=== PATIENT | female | born 1970 | race Caucasian/White ===

== ENCOUNTER 2019-02-02 22:30 | Inpatient (IN) ==
[2019-02-02] MEDS ORDERED: Morphine Sulfate 2 MG/ML SYRINGE IVP ONE (23:05)
[2019-02-02] MEDS ORDERED: 0.9 % Sodium Chloride 1,000 ML IVC ONE (23:05)
[2019-02-02] MEDS ORDERED: Pantoprazole 40 MG VIAL IVP ONE (23:05)
[2019-02-02] MEDS ORDERED: Ondansetron 4 MG/2 ML VIAL IVP ONE (23:05)
[2019-02-02] MEDS ORDERED: Isovue-370 500 ML BOTTLE IVP ONE (23:07)
[2019-02-02 23:57] LABS: Basophils % 0.3 %; Eosinophils # 0.2 K/mcL (0.0-0.6); Eosinophils % 1.7 %; Hematocrit 38.2 % (35.3-44.9); Hemoglobin 13.7 g/dL (11.5-15.4); Immature Granulocytes % 0.2 % (0-4); Lymphocytes # 2.8 K/mcL (0.6-4.6); Lymphocytes % 27.8 %; Mean Corpuscular HGB Conc 35.9 g/dL (31.6-35.5); Mean Corpuscular Hemoglobin 30.9 pg (28.0-33.3); Mean Platelet Volume 10.8 fL (9.4-12.4); Monocytes # 0.9 K/mcL (0.0-1.3); Neutrophils # 6.1 K/mcL (1.6-8.9); Platelet Count 304 K/mcL (140-400); Red Blood Count 4.44 M/mcL (3.82-4.97); Red Cell Distribution Width 12.8 % (11.5-14.5); White Blood Count 10.1 K/mcL (4.3-11.1)
[2019-02-03 00:07] LABS: Alanine Aminotransferase 17 Units/L (7-52); Albumin 4.5 g/dL (3.5-5.7); Albumin/Globulin Ratio 1.6 (1.1-2.2); Alkaline Phosphatase 81 Units/L (34-104); Aspartate Amino Transferase 15 Units/L (13-39); BUN/Creatinine Ratio 14 (6-26); Bilirubin,Direct 0.1 mg/dL (0.0-0.2); Bilirubin,Indirect 0.4 mg/dL (0.0-1.0); Bilirubin,Total 0.5 mg/dL (0.3-1.0); Blood Urea Nitrogen 12 mg/dL (6-20); Calcium 9.8 mg/dL (8.6-10.3); Carbon Dioxide 20 mEq/L (23-29); Chloride 106 mEq/L (98-107); Globulin 2.9 g/dL (2.4-3.5); Glucose 89 mg/dL (70-105); Lipase 9 Units/L (11-82); Osmolality,Calculated 285 (280-300); Potassium 3.4 mEq/L (3.5-5.1); Sodium 138 mEq/L (136-145); Total Protein 7.4 g/dL (6.4-8.9); eGFR For African Americans > 60 (> 60); eGFR For Non-African Americans > 60 (> 60)
[2019-02-03 02:29] LABS: Bilirubin,Urine Negative (Negative); Blood,Urine Negative (Negative); Clarity,Urine Clear (Clear); Color,Urine Yellow (Yellow); Glucose,Urine (UA) Normal (Normal); Ketones,Urine Negative (Negative); Leukocyte Esterase,Urine Negative (Negative); Nitrite,Urine Negative (Negative); PH,Urine 7.5 pH Units (5.0-8.0); Protein,Urine Negative (Neg-Trace); Specific Gravity,Urine > 1.030 (1.010-1.025); Urobilinogen,Urine Normal (Normal)
[2019-02-03] MEDS ORDERED: Morphine Sulfate 2 MG/ML SYRINGE IVP ONE (02:35)
[2019-02-03] MEDS: 0.9 % Sodium Chloride 1,000 ML IVC SCH ×3 (02:46→23:10)
[2019-02-03] MEDS ORDERED: Ketorolac 15 MG/ML VIAL IVP PRN (03:41)
[2019-02-03] MEDS ORDERED: Naloxone 0.4 MG/ML INJ IVP PRN (03:41)
[2019-02-03] MEDS: Ondansetron 4 MG/2 ML VIAL IVP PRN ×3 (05:58→18:50)
[2019-02-03] MEDS: *HR* OxyCODONE Oral Soln 5 MG/5 ML UD.LIQ PO PRN ×5 (05:59→23:09)
[2019-02-03] MEDS: Pantoprazole 40 MG VIAL IVP SCH ×2 (05:59→18:03)
[2019-02-03] MEDS: *HR* Heparin 5,000 UNIT/ML VIAL SQ SCH ×3 (07:23→20:44)
[2019-02-03 09:03] LABS: Hematocrit 36.5 % (35.3-44.9); Hemoglobin 12.4 g/dL (11.5-15.4); Mean Corpuscular Hemoglobin 30.6 pg (28.0-33.3); Mean Corpuscular Volume 90.1 fL (83.0-100.0); Mean Platelet Volume 10.3 fL (9.4-12.4); Platelet Count 257 K/mcL (140-400); Red Blood Count 4.05 M/mcL (3.82-4.97); Red Cell Distribution Width 12.9 % (11.5-14.5); White Blood Count 7.9 K/mcL (4.3-11.1)
[2019-02-03 09:24] LABS: BUN/Creatinine Ratio 11 (6-26); Blood Urea Nitrogen 10 mg/dL (6-20); Calcium 8.9 mg/dL (8.6-10.3); Carbon Dioxide 21 mEq/L (23-29); Chloride 109 mEq/L (98-107); Glucose 90 mg/dL (70-105); Osmolality,Calculated 287 (280-300); Potassium 3.4 mEq/L (3.5-5.1); Sodium 139 mEq/L (136-145); eGFR For African Americans > 60 (> 60); eGFR For Non-African Americans > 60 (> 60)
[2019-02-03] MEDS: Valproic Acid Oral Soln 250 MG/5 ML UDC PO SCH ×2 (12:23→20:44)
[2019-02-03] MEDS: Sucralfate 1 GM TABLET PO SCH ×3 (12:23→20:44)
[2019-02-03 20:34] LABS: Campylobacter by PCR Not detected (Not detect)
[2019-02-03 20:39] LABS: Adenovirus F 40/41 PCR Not detected (Not detect); Astrovirus PCR Not detected (Not detect); C.difficile Toxin A/B Gene PCR DETECTED (Not detect); Cryptosporidium by PCR Not detected (Not detect); Cyclospora cayetanensis PCR Not detected (Not detect); E. coli O157 by PCR Not detected (Not detect); Entamoeba histolytica PCR Not detected (Not detect); Enteroaggregative E.coli(EAEC) Not detected (Not detect); Enteropathogenic E.coli(EPEC) Not detected (Not detect); Enterotoxigenic E.coli (ETEC) Not detected (Not detect); Giardia lamblia PCR Not detected (Not detect); Norovirus GI/GII PCR Not detected (Not detect); Plesiomonas shigelloides PCR Not detected (Not detect); Rotavirus A PCR Not detected (Not detect); Salmonella PCR Not detected (Not detect); Sapovirus PCR Not detected (Not detect); Shig/EnteroinvasiveE coli EIEC Not detected (Not detect); Shigalike tox-prod E coli STEC Not detected (Not detect); Vibrio PCR Not detected (Not detect); Vibrio cholerae PCR Not detected (Not detect); Yersinia enterocolitica PCR Not detected (Not detect)
[2019-02-03] MEDS ORDERED: Vancomycin Oral Soln 125 MG/2.5 ML UDC PO SCH (22:00)
[2019-02-04] MEDS: Ondansetron 4 MG/2 ML VIAL IVP PRN ×4 (01:07→21:58)
[2019-02-04] MEDS: *HR* OxyCODONE Oral Soln 5 MG/5 ML UD.LIQ PO PRN ×5 (04:04→21:58)
[2019-02-04] MEDS: Pantoprazole 40 MG VIAL IVP SCH ×2 (05:55→17:42)
[2019-02-04] MEDS: *HR* Heparin 5,000 UNIT/ML VIAL SQ SCH ×3 (05:55→22:12)
[2019-02-04 06:06] LABS: BUN/Creatinine Ratio 6 (6-26); Blood Urea Nitrogen 5 mg/dL (6-20); Calcium 8.7 mg/dL (8.6-10.3); Carbon Dioxide 19 mEq/L (23-29); Chloride 108 mEq/L (98-107); Glucose 107 mg/dL (70-105); Osmolality,Calculated 282 (280-300); Potassium 3.9 mEq/L (3.5-5.1); Sodium 137 mEq/L (136-145); eGFR For African Americans > 60 (> 60); eGFR For Non-African Americans > 60 (> 60)
[2019-02-04] MEDS: Sucralfate 1 GM TABLET PO SCH ×4 (07:50→23:10)
[2019-02-04] MEDS: 0.9 % Sodium Chloride 1,000 ML IVC SCH ×2 (07:50→15:16)
[2019-02-04] MEDS: Valproic Acid Oral Soln 250 MG/5 ML UDC PO SCH ×2 (09:17→21:56)
[2019-02-05 01:35] LABS: BUN/Creatinine Ratio 6 (6-26); Blood Urea Nitrogen 5 mg/dL (6-20); Calcium 8.6 mg/dL (8.6-10.3); Carbon Dioxide 23 mEq/L (23-29); Chloride 108 mEq/L (98-107); Glucose 89 mg/dL (70-105); Osmolality,Calculated 283 (280-300); Potassium 3.8 mEq/L (3.5-5.1); Sodium 138 mEq/L (136-145); eGFR For African Americans > 60 (> 60); eGFR For Non-African Americans > 60 (> 60)
[2019-02-05] MEDS: *HR* OxyCODONE Oral Soln 5 MG/5 ML UD.LIQ PO PRN ×4 (02:16→17:21)
[2019-02-05] MEDS: 0.9 % Sodium Chloride 1,000 ML IVC SCH ×3 (05:49→13:20)
[2019-02-05] MEDS: Pantoprazole 40 MG VIAL IVP SCH (06:19)
[2019-02-05] MEDS: *HR* Heparin 5,000 UNIT/ML VIAL SQ SCH ×2 (06:20→15:18)
[2019-02-05] MEDS: Valproic Acid Oral Soln 250 MG/5 ML UDC PO SCH (08:07)
[2019-02-05] MEDS: Sucralfate 1 GM TABLET PO SCH ×3 (08:07→15:19)
[2019-02-05] MEDS: Ondansetron 4 MG/2 ML VIAL IVP PRN (08:07)
[2019-02-05] MEDS ORDERED: Ondansetron ODT 4 MG TAB.RAPDIS SL PRN (13:52)
[2019-02-05 14:01] VITALS: BP 99/60
[2019-02-05] MEDS ORDERED: Divalproex (12 HR) 500 MG TABLET PO SCH (21:00)
== END 2019-02-05 18:59 | disposition home or self-care (01) | DRG 389 ==
LOC: 3ANU 22:30 → EMEROOARM 22:30 → SUATTDRO 02-03 02:47 → 3ANU 02-03 03:20
PROVIDERS: ADMIT Internal Medicine; ATTEND Family Medicine

== ENCOUNTER 2019-03-24 21:24 | Observation (INO) ==
[2019-03-24 22:36] LABS: Bilirubin,Urine Negative (Negative); Blood,Urine Negative (Negative); Clarity,Urine Clear (Clear); Color,Urine Yellow (Yellow); Glucose,Urine (UA) Normal (Normal); Ketones,Urine Negative (Negative); Leukocyte Esterase,Urine Trace (Negative); Nitrite,Urine Negative (Negative); PH,Urine 7.5 pH Units (5.0-8.0); Protein,Urine Negative (Neg-Trace); Specific Gravity,Urine 1.007 (1.010-1.025); Urobilinogen,Urine Normal (Normal)
[2019-03-24 22:39] LABS: Bacteria,Urine None Seen per hpf (None-Few); Hyaline Casts,Urine None Seen per lpf (None-Few); RBC,Urine 0-3 per hpf (0-3); Squamous Epithelial Cell,Urine Moderate per lpf (None-Few); WBC,Urine 0-3 per hpf (0-3)
[2019-03-25] MEDS ORDERED: 0.9 % Sodium Chloride 1,000 ML IVC ONE ×2 (03:21→07:15)
[2019-03-25] MEDS ORDERED: Isovue-370 500 ML BOTTLE IVP ONE ×2 (04:51→05:03)
[2019-03-25 05:03] LABS: Basophils # 0.1 K/mcL (0.0-0.2); Basophils % 0.6 %; Eosinophils # 0.3 K/mcL (0.0-0.6); Eosinophils % 3.4 %; Hematocrit 35.9 % (35.3-44.9); Hemoglobin 12.8 g/dL (11.5-15.4); Immature Granulocytes % 0.3 % (0-4); Lymphocytes # 3.4 K/mcL (0.6-4.6); Lymphocytes % 42.3 %; Mean Corpuscular HGB Conc 35.7 g/dL (31.6-35.5); Mean Corpuscular Hemoglobin 29.8 pg (28.0-33.3); Mean Corpuscular Volume 83.5 fL (83.0-100.0); Mean Platelet Volume 11.2 fL (9.4-12.4); Monocytes # 0.7 K/mcL (0.0-1.3); Monocytes % 8.9 %; Neutrophils # 3.6 K/mcL (1.6-8.9); Platelet Count 253 K/mcL (140-400); Red Cell Distribution Width 12.6 % (11.5-14.5); Segmented Neutrophils % 44.5 %
[2019-03-25] MEDS ORDERED: Morphine Sulfate 2 MG/ML SYRINGE IVP PRN (05:33)
[2019-03-25] MEDS ORDERED: Ondansetron 4 MG/2 ML VIAL IVP PRN (05:33)
[2019-03-25 05:34] LABS: Alanine Aminotransferase 14 Units/L (7-52); Albumin 4.4 g/dL (3.5-5.7); Albumin/Globulin Ratio 1.8 (1.1-2.2); Alkaline Phosphatase 66 Units/L (34-104); Amylase 19 Units/L (29-103); Aspartate Amino Transferase 21 Units/L (13-39); BUN/Creatinine Ratio 13 (6-26); Bilirubin,Direct 0.1 mg/dL (0.0-0.2); Bilirubin,Indirect 0.8 mg/dL (0.0-1.0); Bilirubin,Total 0.9 mg/dL (0.3-1.0); Blood Urea Nitrogen 12 mg/dL (6-20); Carbon Dioxide 22 mEq/L (23-29); Chloride 107 mEq/L (98-107); Globulin 2.4 g/dL (2.4-3.5); Glucose 86 mg/dL (70-105); Lipase 7 Units/L (11-82); Osmolality,Calculated 289 (280-300); Potassium 3.5 mEq/L (3.5-5.1); Sodium 140 mEq/L (136-145); Total Protein 6.8 g/dL (6.4-8.9); Troponin I < 0.03 ng/mL (< 0.04); eGFR For African Americans > 60 (> 60); eGFR For Non-African Americans > 60 (> 60)
[2019-03-25] MEDS ORDERED: Prochlorperazine 10 MG/2 ML VIAL IVP ONE (06:55)
[2019-03-25] MEDS ORDERED: *HR* HYDROmorphone (PF) 1 MG/ML SYRINGE IVP ONE (07:14)
[2019-03-25] MEDS ORDERED: Naloxone 0.4 MG/ML INJ IVP PRN (08:15)
[2019-03-25] MEDS ORDERED: D5% in 0.45% NACL 1,000 ML IVC SCH (08:15)
[2019-03-25] MEDS ORDERED: Acetaminophen 325 MG TABLET PO PRN (08:15)
[2019-03-25] MEDS ORDERED: Dextrose Gel 15 GM/37.5 ML TUBE PO PRN ×2 (08:17)
[2019-03-25] MEDS ORDERED: *HR* Dextrose 50 % in Water (Syg) 50 ML SYRINGE IVP PRN (08:17)
[2019-03-25] MEDS ORDERED: D5% in Water 1,000 ML IVC PRN (08:17)
[2019-03-25] MEDS: Insulin LISPRO 300 UNITS/3 ML VIAL SQ SCH ×3 (12:08→23:41)
[2019-03-25] MEDS: *HR* Heparin 5,000 UNIT/ML VIAL SQ SCH ×2 (13:15→21:08)
[2019-03-25] MEDS: *HR* OxyCODONE/APAP 5/325 TABLET PO PRN ×2 (13:15→19:57)
[2019-03-25] MEDS: Nystatin POWDER 30 GM BOTTLE TP SCH (19:58)
[2019-03-25] MEDS: Divalproex (12 HR) 500 MG TABLET PO SCH (23:28)
[2019-03-26] MEDS: *HR* OxyCODONE/APAP 5/325 TABLET PO PRN ×3 (02:12→16:33)
[2019-03-26] MEDS: *HR* Heparin 5,000 UNIT/ML VIAL SQ SCH ×3 (05:31→20:49)
[2019-03-26 05:44] LABS: Basophils % 0.4 %; Eosinophils # 0.3 K/mcL (0.0-0.6); Eosinophils % 5.8 %; Hematocrit 34.9 % (35.3-44.9); Hemoglobin 12.1 g/dL (11.5-15.4); Immature Granulocytes % 0.2 % (0-4); Lymphocytes # 2.6 K/mcL (0.6-4.6); Lymphocytes % 51.8 %; Mean Corpuscular HGB Conc 34.7 g/dL (31.6-35.5); Mean Corpuscular Hemoglobin 29.2 pg (28.0-33.3); Mean Corpuscular Volume 84.3 fL (83.0-100.0); Mean Platelet Volume 11.3 fL (9.4-12.4); Monocytes # 0.4 K/mcL (0.0-1.3); Monocytes % 7.5 %; Neutrophils # 1.7 K/mcL (1.6-8.9); Platelet Count 203 K/mcL (140-400); Red Blood Count 4.14 M/mcL (3.82-4.97); Red Cell Distribution Width 12.8 % (11.5-14.5); Segmented Neutrophils % 34.3 %
[2019-03-26 05:49] LABS: INR 1.2; Prothrombin Time 13.2 Seconds (9.4-12.1)
[2019-03-26 05:52] LABS: Activated Partial Thrombo Time 36.7 Seconds (26.0-36.0)
[2019-03-26 06:11] LABS: BUN/Creatinine Ratio 8 (6-26); Blood Urea Nitrogen 6 mg/dL (6-20); Calcium 9.3 mg/dL (8.6-10.3); Carbon Dioxide 22 mEq/L (23-29); Chloride 109 mEq/L (98-107); Glucose 95 mg/dL (70-105); Magnesium 1.8 mg/dL (1.6-2.6); Osmolality,Calculated 295 (280-300); Phosphorous 5.3 mg/dL (2.7-4.5); Potassium 3.4 mEq/L (3.5-5.1); Sodium 144 mEq/L (136-145); eGFR For African Americans > 60 (> 60); eGFR For Non-African Americans > 60 (> 60)
[2019-03-26] MEDS: Insulin LISPRO 300 UNITS/3 ML VIAL SQ SCH ×3 (07:13→16:31)
[2019-03-26] MEDS: Divalproex (12 HR) 500 MG TABLET PO SCH ×2 (09:13→20:48)
[2019-03-26] MEDS: Nystatin POWDER 30 GM BOTTLE TP SCH (09:14)
[2019-03-26] MEDS: tiZANidine 4 MG TABLET PO PRN ×2 (09:28→20:49)
[2019-03-26] MEDS: Ondansetron 4 MG/2 ML VIAL IVP PRN (14:16)
[2019-03-27] MEDS: Nystatin POWDER 30 GM BOTTLE TP SCH ×2 (00:45→09:36)
[2019-03-27] MEDS: *HR* OxyCODONE/APAP 5/325 TABLET PO PRN ×3 (00:45→15:12)
[2019-03-27] MEDS: *HR* Heparin 5,000 UNIT/ML VIAL SQ SCH ×2 (05:33→15:13)
[2019-03-27 05:44] LABS: BUN/Creatinine Ratio 5 (6-26); Blood Urea Nitrogen 4 mg/dL (6-20); Calcium 9.2 mg/dL (8.6-10.3); Carbon Dioxide 22 mEq/L (23-29); Chloride 106 mEq/L (98-107); Glucose 84 mg/dL (70-105); Osmolality,Calculated 284 (280-300); Potassium 3.7 mEq/L (3.5-5.1); Sodium 139 mEq/L (136-145); Thyroid Stimulating Hormone 2.711 mcIU/mL (0.340-5.600); eGFR For African Americans > 60 (> 60); eGFR For Non-African Americans > 60 (> 60)
[2019-03-27] MEDS: Insulin LISPRO 300 UNITS/3 ML VIAL SQ SCH ×3 (07:03→13:08)
[2019-03-27] MEDS: tiZANidine 4 MG TABLET PO PRN (08:37)
[2019-03-27] MEDS: Divalproex (12 HR) 500 MG TABLET PO SCH (08:37)
[2019-03-27 11:32] VITALS: BP 118/73
[2019-03-27] MEDS: Ondansetron 4 MG/2 ML VIAL IVP PRN (13:45)
[2019-03-27] MEDS ORDERED: Insulin LISPRO 300 UNITS/3 ML VIAL SQ SCH (21:00)
== END 2019-03-27 18:06 | disposition home or self-care (01) ==
LOC: CDU 21:24 → EMEROOARM 21:24 → SUATTDRO 03-25 07:58 → CDU 03-25 08:03 → 3ANU 03-25 15:07
PROVIDERS: ADMIT Internal Medicine; ATTEND Internal Medicine

== ENCOUNTER 2019-08-11 15:33 | Observation (INO) ==
[2019-08-11] MEDS ORDERED: *HR* Promethazine 25 MG/ML VIAL IM ONE (15:58)
[2019-08-11] MEDS ORDERED: Dicyclomine 20 MG/2 ML AMPUL IM STA (15:58)
[2019-08-11 16:25] LABS: Basophils # 0.1 K/mcL (0.0-0.2); Basophils % 0.6 %; Eosinophils % 0.4 %; Hematocrit 39.1 % (35.3-44.9); Hemoglobin 13.5 g/dL (11.5-15.4); Immature Granulocytes % 1.7 % (0-4); Lymphocytes # 2.7 K/mcL (0.6-4.6); Lymphocytes % 27.4 %; Mean Corpuscular HGB Conc 34.5 g/dL (31.6-35.5); Mean Corpuscular Hemoglobin 29.3 pg (28.0-33.3); Mean Corpuscular Volume 84.8 fL (83.0-100.0); Mean Platelet Volume 9.9 fL (9.4-12.4); Monocytes # 1.2 K/mcL (0.0-1.3); Monocytes % 12.2 %; Neutrophils # 5.7 K/mcL (1.6-8.9); Platelet Count 409 K/mcL (140-400); Red Blood Count 4.61 M/mcL (3.82-4.97); Red Cell Distribution Width 13.5 % (11.5-14.5); Segmented Neutrophils % 57.7 %; White Blood Count 9.8 K/mcL (4.3-11.1)
[2019-08-11 16:49] LABS: BUN/Creatinine Ratio 9 (6-26); Blood Urea Nitrogen 9 mg/dL (6-20); Calcium 8.8 mg/dL (8.6-10.3); Carbon Dioxide 21 mEq/L (23-29); Chloride 108 mEq/L (98-107); Glucose 103 mg/dL (70-105); Osmolality,Calculated 287 (280-300); Potassium 2.5 mEq/L (3.5-5.1); Sodium 139 mEq/L (136-145); eGFR For African Americans > 60 (> 60); eGFR For Non-African Americans 57 (> 60)
[2019-08-11] MEDS ORDERED: Ondansetron 4 MG/2 ML VIAL IVP ONE (17:04)
[2019-08-11] MEDS ORDERED: MetroNIDAZOLE 500 MG/100 ML 500 MG/100 ML BAG IVPB ONE (17:04)
[2019-08-11] MEDS ORDERED: *HR* HYDROmorphone (PF) 1 MG/ML SYRINGE IVP ONE (17:04)
[2019-08-11] MEDS ORDERED: 0.9 % Sodium Chloride 1,000 ML IVC ONE (17:13)
[2019-08-11] MEDS ORDERED: *HR* Promethazine 25 MG/ML VIAL IVP PRN (18:11)
[2019-08-11] MEDS ORDERED: Ondansetron 4 MG/2 ML VIAL IVP PRN (18:11)
[2019-08-11] MEDS ORDERED: Naloxone 0.4 MG/ML INJ IVP PRN (18:11)
[2019-08-11] MEDS: QUEtiapine Fumarate 300 MG TABLET PO SCH (21:24)
[2019-08-11] MEDS: Divalproex (12 HR) 500 MG TABLET PO SCH (21:24)
[2019-08-11] MEDS: *HR* HYDROcodone/Acet 5/325 mg TABLET PO PRN (21:24)
[2019-08-11] MEDS: hydrOXYzine pamoate 25 MG CAPSULE PO SCH (21:24)
[2019-08-11] MEDS: Pregabalin 50 MG CAPSULE PO SCH (21:24)
[2019-08-11] MEDS: Vancomycin Oral Soln 125 MG/2.5 ML UDC PO SCH (21:25)
[2019-08-11] MEDS: Sucralfate 1 GM TABLET PO SCH (21:25)
[2019-08-11] MEDS: BUPRENORPHINE HCL 75 MCG PO SCH (23:25)
[2019-08-12] MEDS ORDERED: Morphine Sulfate 2 MG/ML SYRINGE IVP ONE (00:19)
[2019-08-12] MEDS: Ondansetron ODT 4 MG TAB.RAPDIS SL SCH ×2 (00:38→05:37)
[2019-08-12] MEDS: *HR* HYDROcodone/Acet 5/325 mg TABLET PO PRN ×2 (01:08→06:55)
[2019-08-12 01:33] LABS: BUN/Creatinine Ratio 10 (6-26); Blood Urea Nitrogen 9 mg/dL (6-20); Carbon Dioxide 20 mEq/L (23-29); Chloride 113 mEq/L (98-107); Glucose 92 mg/dL (70-105); Osmolality,Calculated 288 (280-300); Potassium 3.7 mEq/L (3.5-5.1); Sodium 140 mEq/L (136-145); eGFR For African Americans > 60 (> 60); eGFR For Non-African Americans > 60 (> 60)
[2019-08-12] MEDS: Acetaminophen 325 MG TABLET PO PRN (05:37)
[2019-08-12 05:41] LABS: Basophils # 0.1 K/mcL (0.0-0.2); Basophils % 0.5 %; Eosinophils # 0.1 K/mcL (0.0-0.6); Eosinophils % 1.2 %; Hematocrit 35.1 % (35.3-44.9); Immature Granulocytes % 1.3 % (0-4); Lymphocytes # 3.3 K/mcL (0.6-4.6); Lymphocytes % 35.7 %; Mean Corpuscular HGB Conc 33.6 g/dL (31.6-35.5); Mean Corpuscular Hemoglobin 28.9 pg (28.0-33.3); Monocytes # 0.9 K/mcL (0.0-1.3); Monocytes % 9.2 %; Neutrophils # 4.8 K/mcL (1.6-8.9); Platelet Count 351 K/mcL (140-400); Red Blood Count 4.08 M/mcL (3.82-4.97); Red Cell Distribution Width 13.9 % (11.5-14.5); Segmented Neutrophils % 52.1 %; White Blood Count 9.2 K/mcL (4.3-11.1)
[2019-08-12 05:42] LABS: Hemoglobin 11.8 g/dL (11.5-15.4)
[2019-08-12 06:01] LABS: BUN/Creatinine Ratio 10 (6-26); Blood Urea Nitrogen 9 mg/dL (6-20); Calcium 8.1 mg/dL (8.6-10.3); Carbon Dioxide 22 mEq/L (23-29); Chloride 111 mEq/L (98-107); Glucose 146 mg/dL (70-105); Osmolality,Calculated 287 (280-300); Potassium 3.5 mEq/L (3.5-5.1); Sodium 138 mEq/L (136-145); eGFR For African Americans > 60 (> 60); eGFR For Non-African Americans > 60 (> 60)
[2019-08-12] MEDS: Vancomycin Oral Soln 125 MG/2.5 ML UDC PO SCH ×4 (09:31→21:13)
[2019-08-12] MEDS: hydrOXYzine pamoate 25 MG CAPSULE PO SCH ×2 (09:32→21:13)
[2019-08-12] MEDS: Sucralfate 1 GM TABLET PO SCH ×4 (09:32→21:13)
[2019-08-12] MEDS: Divalproex (12 HR) 500 MG TABLET PO SCH ×2 (09:32→21:13)
[2019-08-12] MEDS: Pregabalin 50 MG CAPSULE PO SCH ×2 (09:33→21:13)
[2019-08-12] MEDS: BUPRENORPHINE HCL 75 MCG PO SCH ×3 (09:35→21:14)
[2019-08-12] MEDS ORDERED: MetroNIDAZOLE 500 MG/100 ML 500 MG/100 ML BAG IVPB SCH (11:13)
[2019-08-12] MEDS: *HR* OxyCODONE Immed Rel 5 MG TABLET PO PRN ×2 (12:13→18:16)
[2019-08-12] MEDS ORDERED: Fluticasone Propionate Nasal 50 MCG/SPRAY BOTTLE NS PRN (14:17)
[2019-08-12] MEDS: Multivit/Ca/Min/Fe/FA 1 TAB TABLET PO SCH (21:13)
[2019-08-12] MEDS: Cyanocobalamin (B-12) 1,000 MCG TABLET PO SCH (21:13)
[2019-08-12] MEDS: QUEtiapine Fumarate 300 MG TABLET PO SCH (21:13)
[2019-08-13] MEDS: *HR* OxyCODONE Immed Rel 5 MG TABLET PO PRN ×4 (00:23→18:44)
[2019-08-13 07:05] LABS: BUN/Creatinine Ratio 7 (6-26); Blood Urea Nitrogen 7 mg/dL (6-20); Calcium 8.1 mg/dL (8.6-10.3); Carbon Dioxide 23 mEq/L (23-29); Chloride 112 mEq/L (98-107); Glucose 90 mg/dL (70-105); Osmolality,Calculated 288 (280-300); Potassium 3.8 mEq/L (3.5-5.1); Sodium 140 mEq/L (136-145); eGFR For African Americans > 60 (> 60); eGFR For Non-African Americans > 60 (> 60)
[2019-08-13] MEDS: Sucralfate 1 GM TABLET PO SCH ×3 (09:20→16:46)
[2019-08-13] MEDS: Cyanocobalamin (B-12) 1,000 MCG TABLET PO SCH (09:20)
[2019-08-13] MEDS: Multivit/Ca/Min/Fe/FA 1 TAB TABLET PO SCH (09:20)
[2019-08-13] MEDS: Acetaminophen 325 MG TABLET PO PRN (09:20)
[2019-08-13] MEDS: Pregabalin 50 MG CAPSULE PO SCH (09:20)
[2019-08-13] MEDS: Divalproex (12 HR) 500 MG TABLET PO SCH (09:20)
[2019-08-13] MEDS: hydrOXYzine pamoate 25 MG CAPSULE PO SCH (09:21)
[2019-08-13] MEDS: Vancomycin Oral Soln 125 MG/2.5 ML UDC PO SCH ×3 (09:21→16:46)
[2019-08-13] MEDS: BUPRENORPHINE HCL 75 MCG PO SCH ×2 (09:22→13:37)
[2019-08-13 14:53] VITALS: BP 125/77
== END 2019-08-13 19:46 | disposition home or self-care (01) ==
LOC: EMEROOARM 15:33 → 3ANU 15:33 → SUATTDRO 17:24 → 3ANU 18:43
PROVIDERS: ADMIT Internal Medicine; ATTEND Internal Medicine

== ENCOUNTER 2020-03-22 18:14 | Observation (INO) ==
[2020-03-22] MEDS ORDERED: Isovue-370 500 ML BOTTLE IVP ONE (18:45)
[2020-03-22] MEDS ORDERED: 0.9 % Sodium Chloride 1,000 ML IVC ONE (18:45)
[2020-03-22] MEDS ORDERED: Ondansetron 4 MG/2 ML VIAL IVP ONE (18:45)
[2020-03-22] MEDS ORDERED: Pantoprazole 40 MG VIAL IVP ONE (18:45)
[2020-03-22] MEDS ORDERED: *HR* FentaNYL (PF) 100 MCG/2 ML VIAL IVP ONE ×2 (18:46→21:03)
[2020-03-22 19:28] LABS: Basophils % 0.4 %; Eosinophils # 0.1 K/mcL (0.0-0.6); Eosinophils % 1.3 %; Hematocrit 42.7 % (35.3-44.9); Hemoglobin 15.6 g/dL (11.5-15.4); Immature Granulocytes % 0.3 % (0-4); Lymphocytes # 3.5 K/mcL (0.6-4.6); Lymphocytes % 45.6 %; Mean Corpuscular HGB Conc 36.5 g/dL (31.6-35.5); Mean Corpuscular Hemoglobin 31.5 pg (28.0-33.3); Mean Corpuscular Volume 86.3 fL (83.0-100.0); Monocytes # 0.5 K/mcL (0.0-1.3); Monocytes % 6.7 %; Neutrophils # 3.5 K/mcL (1.6-8.9); Platelet Count 352 K/mcL (140-400); Red Blood Count 4.95 M/mcL (3.82-4.97); Red Cell Distribution Width 14.3 % (11.5-14.5); Segmented Neutrophils % 45.7 %; White Blood Count 7.6 K/mcL (4.3-11.1)
[2020-03-22 19:33] LABS: Bilirubin,Urine Negative (Negative); Blood,Urine Negative (Negative); Clarity,Urine Clear (Clear); Color,Urine Colorless (Yellow); Glucose,Urine (UA) Normal (Normal); Ketones,Urine Negative (Negative); Leukocyte Esterase,Urine Negative (Negative); Nitrite,Urine Negative (Negative); PH,Urine 7.5 pH Units (5.0-8.0); Protein,Urine Negative (Neg-Trace); Specific Gravity,Urine 1.007 (1.010-1.025); Urobilinogen,Urine Normal (Normal)
[2020-03-22 19:46] LABS: Alanine Aminotransferase 18 Units/L (7-52); Albumin 4.9 g/dL (3.5-5.7); Albumin/Globulin Ratio 1.5 (1.1-2.2); Alkaline Phosphatase 94 Units/L (34-104); Amylase 32 Units/L (29-103); Aspartate Amino Transferase 21 Units/L (13-39); BUN/Creatinine Ratio 15 (6-26); Bilirubin,Direct 0.1 mg/dL (0.0-0.2); Bilirubin,Indirect 0.4 mg/dL (0.0-1.0); Bilirubin,Total 0.5 mg/dL (0.3-1.0); Blood Urea Nitrogen 13 mg/dL (6-20); Calcium 10.2 mg/dL (8.6-10.3); Carbon Dioxide 24 mEq/L (23-29); Chloride 103 mEq/L (98-107); Globulin 3.2 g/dL (2.4-3.5); Glucose 80 mg/dL (70-105); Lipase 23 Units/L (11-82); Osmolality,Calculated 285 (280-300); Potassium 3.8 mEq/L (3.5-5.1); Sodium 138 mEq/L (136-145); Total Protein 8.1 g/dL (6.4-8.9); eGFR For African Americans > 60 (> 60); eGFR For Non-African Americans > 60 (> 60)
[2020-03-22] MEDS ORDERED: D5% in Water 1,000 ML IVC PRN (21:37)
[2020-03-22] MEDS ORDERED: Dextrose Gel 15 GM/37.5 ML TUBE PO PRN ×2 (21:37)
[2020-03-22] MEDS ORDERED: *HR* Dextrose 50 % in Water (Vial) 50 ML VIAL IVP PRN (21:37)
[2020-03-22] MEDS ORDERED: Naloxone 0.4 MG/ML INJ IVP PRN (21:37)
[2020-03-22] MEDS ORDERED: Acetaminophen 325 MG TABLET PO PRN (21:43)
[2020-03-22] MEDS: *HR* Heparin 5,000 UNIT/ML VIAL SQ SCH (23:41)
[2020-03-22] MEDS ORDERED: Lidocaine Viscous Oral Soln 15 ML SOLUTION MM PRN (23:49)
[2020-03-22] MEDS ORDERED: hydrOXYzine pamoate 25 MG CAPSULE PO PRN (23:49)
[2020-03-22] MEDS ORDERED: EPINEPHrine 1 MG/ML VIAL IM PRN (23:49)
[2020-03-22] MEDS ORDERED: QUEtiapine Fumarate 25 MG TABLET PO PRN (23:49)
[2020-03-23] MEDS: Vancomycin Oral Soln 125 MG/2.5 ML UDC PO SCH ×5 (00:41→20:31)
[2020-03-23] MEDS: *HR* OxyCODONE Immed Rel 5 MG TABLET PO PRN ×4 (03:02→22:01)
[2020-03-23] MEDS: *HR* Heparin 5,000 UNIT/ML VIAL SQ SCH ×3 (05:44→22:01)
[2020-03-23] MEDS: Insulin LISPRO 300 UNITS/3 ML VIAL SUBQ SCH ×3 (08:04→17:36)
[2020-03-23] MEDS: QUEtiapine Fumarate 300 MG TABLET PO SCH (08:12)
[2020-03-23] MEDS: Multivit/Ca/Min/Fe/FA 1 TAB TABLET PO SCH ×2 (08:12→20:31)
[2020-03-23] MEDS: Cyanocobalamin (B-12) 1,000 MCG TABLET PO SCH ×2 (08:12→20:31)
[2020-03-23] MEDS: Ondansetron 4 MG/2 ML VIAL IVP PRN ×2 (08:12→17:24)
[2020-03-23] MEDS: Sucralfate 1 GM TABLET PO SCH ×4 (08:12→20:31)
[2020-03-23] MEDS: Divalproex (12 HR) 500 MG TABLET PO SCH ×2 (08:12→20:30)
[2020-03-23] MEDS: Pregabalin 50 MG CAPSULE PO SCH ×2 (08:13→20:30)
[2020-03-23] MEDS ORDERED: Buprenorphine Hcl [Belbuca] 150 MCG SL SCH (09:00)
[2020-03-23] MEDS ORDERED: 0.9 % Sodium Chloride 500 ML IVC ONE (17:18)
[2020-03-23] MEDS ORDERED: Melatonin 3 MG TABLET PO ONE (22:12)
[2020-03-24] MEDS: *HR* Heparin 5,000 UNIT/ML VIAL SQ SCH ×3 (05:42→21:54)
[2020-03-24] MEDS: *HR* HYDROcodone/Acet 7.5/325 mg TABLET PO PRN ×3 (05:54→21:56)
[2020-03-24 06:02] LABS: Basophils % 0.5 %; Eosinophils # 0.2 K/mcL (0.0-0.6); Eosinophils % 2.9 %; Hematocrit 41.3 % (35.3-44.9); Immature Granulocytes % 0.2 % (0-4); Lymphocytes # 3.8 K/mcL (0.6-4.6); Lymphocytes % 57.2 %; Mean Corpuscular HGB Conc 32.7 g/dL (31.6-35.5); Mean Corpuscular Hemoglobin 28.4 pg (28.0-33.3); Mean Corpuscular Volume 86.8 fL (83.0-100.0); Mean Platelet Volume 10.5 fL (9.4-12.4); Monocytes # 0.4 K/mcL (0.0-1.3); Monocytes % 6.5 %; Neutrophils # 2.2 K/mcL (1.6-8.9); Platelet Count 250 K/mcL (140-400); Red Blood Count 4.76 M/mcL (3.82-4.97); Red Cell Distribution Width 14.4 % (11.5-14.5); Segmented Neutrophils % 32.7 %; White Blood Count 6.6 K/mcL (4.3-11.1)
[2020-03-24 06:04] LABS: Hemoglobin 13.5 g/dL (11.5-15.4)
[2020-03-24] MEDS: Ondansetron 4 MG/2 ML VIAL IVP PRN ×2 (06:20→14:57)
[2020-03-24 06:22] LABS: BUN/Creatinine Ratio 7 (6-26); Blood Urea Nitrogen 5 mg/dL (6-20); Calcium 9.6 mg/dL (8.6-10.3); Carbon Dioxide 24 mEq/L (23-29); Chloride 101 mEq/L (98-107); Glucose 83 mg/dL (70-105); Osmolality,Calculated 270 (280-300); Potassium 4.3 mEq/L (3.5-5.1); Sodium 132 mEq/L (136-145); eGFR For African Americans > 60 (> 60); eGFR For Non-African Americans > 60 (> 60)
[2020-03-24] MEDS: Insulin LISPRO 300 UNITS/3 ML VIAL SUBQ SCH ×3 (08:23→17:37)
[2020-03-24] MEDS: Cyanocobalamin (B-12) 1,000 MCG TABLET PO SCH ×2 (09:13→21:53)
[2020-03-24] MEDS: Multivit/Ca/Min/Fe/FA 1 TAB TABLET PO SCH ×2 (09:13→21:53)
[2020-03-24] MEDS: Pregabalin 50 MG CAPSULE PO SCH ×2 (09:14→21:52)
[2020-03-24] MEDS: Sucralfate 1 GM TABLET PO SCH ×4 (09:14→21:53)
[2020-03-24] MEDS: *HR* OxyCODONE Immed Rel 5 MG TABLET PO PRN ×2 (09:14→17:42)
[2020-03-24] MEDS: Divalproex (12 HR) 500 MG TABLET PO SCH ×2 (09:14→21:53)
[2020-03-24] MEDS: Vancomycin Oral Soln 125 MG/2.5 ML UDC PO SCH (09:15)
[2020-03-24] MEDS: QUEtiapine Fumarate 300 MG TABLET PO SCH ×2 (10:52→21:53)
[2020-03-24 13:42] LABS: Influenza A PCR Negative (Negative); Influenza B PCR Negative (Negative); Resp. Syncytial Virus PCR Negative (Negative)
[2020-03-24 13:45] LABS: SARS-CoV-2 by PCR (In House) Negative (Negative)
[2020-03-24] MEDS: tiZANidine 4 MG TABLET PO PRN (22:08)
[2020-03-24] MEDS ORDERED: Magic Mouthwash 10 ML UD Cup PO PRN (22:12)
[2020-03-24] MEDS ORDERED: Melatonin 3 MG TABLET PO ONE (22:12)
[2020-03-25] MEDS: *HR* OxyCODONE Immed Rel 5 MG TABLET PO PRN ×4 (04:51→23:31)
[2020-03-25] MEDS: Ondansetron 4 MG/2 ML VIAL IVP PRN ×3 (04:52→22:17)
[2020-03-25] MEDS: *HR* Heparin 5,000 UNIT/ML VIAL SQ SCH ×3 (04:56→20:12)
[2020-03-25] MEDS: *HR* HYDROcodone/Acet 7.5/325 mg TABLET PO PRN ×3 (06:55→20:13)
[2020-03-25] MEDS: Insulin LISPRO 300 UNITS/3 ML VIAL SUBQ SCH ×3 (07:46→16:34)
[2020-03-25] MEDS: Cyanocobalamin (B-12) 1,000 MCG TABLET PO SCH ×2 (08:17→20:13)
[2020-03-25] MEDS: Pregabalin 50 MG CAPSULE PO SCH ×2 (08:18→20:13)
[2020-03-25] MEDS: Multivit/Ca/Min/Fe/FA 1 TAB TABLET PO SCH ×2 (08:18→20:14)
[2020-03-25] MEDS: Divalproex (12 HR) 500 MG TABLET PO SCH ×2 (08:18→20:13)
[2020-03-25] MEDS: Sucralfate 1 GM TABLET PO SCH ×2 (08:18→13:56)
[2020-03-25] MEDS: tiZANidine 4 MG TABLET PO PRN ×2 (11:25→20:14)
[2020-03-25] MEDS ORDERED: *HR* Propofol 200 MG/20 ML VIAL IVP ONE ×2 (13:05→13:39)
[2020-03-25] MEDS ORDERED: Lidocaine -MPF 2% 2 ML VIAL ONE ×2 (13:05→13:16)
[2020-03-25] MEDS: 0.9 % Sodium Chloride 1,000 ML IVC SCH (13:51)
[2020-03-25] MEDS: QUEtiapine Fumarate 300 MG TABLET PO SCH (22:17)
[2020-03-26] MEDS: *HR* HYDROcodone/Acet 7.5/325 mg TABLET PO PRN ×3 (03:58→15:56)
[2020-03-26] MEDS: tiZANidine 4 MG TABLET PO PRN (04:03)
[2020-03-26] MEDS: *HR* Heparin 5,000 UNIT/ML VIAL SQ SCH ×2 (06:16→13:11)
[2020-03-26] MEDS: *HR* OxyCODONE Immed Rel 5 MG TABLET PO PRN ×2 (06:17→13:12)
[2020-03-26] MEDS: Ondansetron 4 MG/2 ML VIAL IVP PRN ×2 (06:30→15:53)
[2020-03-26] MEDS: 0.9 % Sodium Chloride 1,000 ML IVC SCH (07:21)
[2020-03-26] MEDS: Pregabalin 50 MG CAPSULE PO SCH (09:57)
[2020-03-26] MEDS: Cyanocobalamin (B-12) 1,000 MCG TABLET PO SCH (09:57)
[2020-03-26] MEDS: Divalproex (12 HR) 500 MG TABLET PO SCH (09:57)
[2020-03-26] MEDS: Multivit/Ca/Min/Fe/FA 1 TAB TABLET PO SCH (09:58)
[2020-03-26 11:07] VITALS: BP 112/74
== END 2020-03-26 18:05 | disposition home or self-care (01) ==
LOC: 2ANU 18:14 → EMEROOARM 18:14 → SUATTDRO 21:58 → 2ANU 22:38
PROVIDERS: ADMIT Family Medicine; ATTEND Internal Medicine
PROC: ENDOEBX (2020-03-25 15:00)

== ENCOUNTER 2020-04-01 18:11 | Inpatient (IN) ==
[2020-04-01] MEDS ORDERED: Morphine Sulfate 2 MG/ML SYRINGE IVP ONE ×2 (19:09→23:29)
[2020-04-01] MEDS ORDERED: *HR* Promethazine 25 MG/ML VIAL IM ONE (19:09)
[2020-04-01] MEDS ORDERED: 0.9 % Sodium Chloride 1,000 ML IVC ONE (19:09)
[2020-04-01] MEDS ORDERED: Pantoprazole 40 MG VIAL IVP ONE (19:14)
[2020-04-01 20:22] LABS: Basophils % 0.4 %; Eosinophils # 0.2 K/mcL (0.0-0.6); Eosinophils % 2.2 %; Hematocrit 35.5 % (35.3-44.9); Hemoglobin 12.2 g/dL (11.5-15.4); Immature Granulocytes % 0.1 % (0-4); Lymphocytes # 3.4 K/mcL (0.6-4.6); Lymphocytes % 49.9 %; Mean Corpuscular HGB Conc 34.4 g/dL (31.6-35.5); Mean Corpuscular Hemoglobin 28.8 pg (28.0-33.3); Mean Corpuscular Volume 83.7 fL (83.0-100.0); Mean Platelet Volume 10.2 fL (9.4-12.4); Monocytes # 0.5 K/mcL (0.0-1.3); Monocytes % 7.4 %; Neutrophils # 2.7 K/mcL (1.6-8.9); Platelet Count 262 K/mcL (140-400); Red Blood Count 4.24 M/mcL (3.82-4.97); Red Cell Distribution Width 13.6 % (11.5-14.5); White Blood Count 6.7 K/mcL (4.3-11.1)
[2020-04-01 20:26] LABS: INR 1.3; Prothrombin Time 14.8 Seconds (9.4-12.1)
[2020-04-01] MEDS ORDERED: Isovue-370 500 ML BOTTLE IVP ONE (20:57)
[2020-04-01 21:06] LABS: Bilirubin,Urine Negative (Negative); Blood,Urine Negative (Negative); Clarity,Urine Clear (Clear); Color,Urine Light-Yellow (Yellow); Glucose,Urine (UA) Normal (Normal); Ketones,Urine Negative (Negative); Leukocyte Esterase,Urine Negative (Negative); Nitrite,Urine Negative (Negative); Protein,Urine Negative (Neg-Trace); Urobilinogen,Urine Normal (Normal)
[2020-04-01 21:09] LABS: Alanine Aminotransferase 17 Units/L (7-52); Albumin 3.9 g/dL (3.5-5.7); Albumin/Globulin Ratio 1.5 (1.1-2.2); Alkaline Phosphatase 67 Units/L (34-104); Aspartate Amino Transferase 21 Units/L (13-39); BUN/Creatinine Ratio 13 (6-26); Bilirubin,Direct 0.1 mg/dL (0.0-0.2); Bilirubin,Indirect 0.5 mg/dL (0.0-1.0); Bilirubin,Total 0.6 mg/dL (0.3-1.0); Blood Urea Nitrogen 11 mg/dL (6-20); Calcium 9.2 mg/dL (8.6-10.3); Carbon Dioxide 22 mEq/L (23-29); Chloride 108 mEq/L (98-107); Globulin 2.6 g/dL (2.4-3.5); Glucose 97 mg/dL (70-105); Lipase 13 Units/L (11-82); Osmolality,Calculated 289 (280-300); Potassium 3.7 mEq/L (3.5-5.1); Sodium 140 mEq/L (136-145); Total Protein 6.5 g/dL (6.4-8.9); eGFR For African Americans > 60 (> 60); eGFR For Non-African Americans > 60 (> 60)
[2020-04-01 21:15] LABS: Troponin I < 0.03 ng/mL (< 0.04)
[2020-04-01 21:23] LABS: Amphetamine Screen,Urine Negative ng/mL (Cutoff=1000); Barbiturate Screen,Urine Negative ng/mL (Cutoff=200); Benzodiazepines Screen,Urine Negative ng/mL (Cutoff=200); Cannabinoid Screen,Urine Negative ng/mL (Cutoff = 50); Cocaine Screen,Urine Negative ng/mL (Cutoff= 300); Opiate Screen,Urine Negative ng/mL (Cutoff=300); Phencyclidine Screen,Urine Negative ng/mL (Cutoff=25)
[2020-04-01 21:55] LABS: Adenovirus Not Detected (Not Detect); Bordetella Pertussis Not Detected (Not Detect); Chlamydophila pneumoniae Not Detected (Not Detect); Coronavirus 229E Not Detected (Not Detect); Coronavirus HKU1 Not Detected (Not Detect); Coronavirus NL63 Not Detected (Not Detect); Coronavirus OC43 Not Detected (Not Detect); Human Metapneumovirus Not Detected (Not Detect); Human Rhinovirus/Enterovirus Not Detected (Not Detect); Influenza A Subtype 2009 H1 Not Detected (Not Detect); Influenza B Not Detected (Not Detect); Mycoplasma pneumoniae Not Detected (Not Detect); Parainfluenza Virus 1 Not Detected (Not Detect); Parainfluenza Virus 2 Not Detected (Not Detect); Parainfluenza Virus 3 Not Detected (Not Detect); Parainfluenza Virus 4 Not Detected (Not Detect); Respiratory Syncytial Virus Not Detected (Not Detect); SARS-CoV-2 Not Detected (Not Detect)
[2020-04-01] MEDS ORDERED: Ondansetron 4 MG/2 ML VIAL IVP ONE (22:42)
[2020-04-01] MEDS ORDERED: Prochlorperazine 10 MG/2 ML VIAL IM ONE (22:42)
[2020-04-01] MEDS ORDERED: GI Cocktail 40 ML EACH PO ONE (23:29)
[2020-04-02] MEDS ORDERED: Naloxone 0.4 MG/ML INJ IVP PRN (01:39)
[2020-04-02] MEDS ORDERED: Acetaminophen 325 MG TABLET PO PRN (01:39)
[2020-04-02] MEDS: 0.9 % Sodium Chloride 1,000 ML IVC SCH ×2 (01:58→10:30)
[2020-04-02] MEDS: *HR* Promethazine 25 MG/ML VIAL IM PRN ×3 (03:56→21:57)
[2020-04-02] MEDS: Morphine Sulfate 2 MG/ML SYRINGE IVP PRN ×5 (03:57→21:57)
[2020-04-02 07:11] LABS: Basophils % 0.5 %; Eosinophils # 0.1 K/mcL (0.0-0.6); Eosinophils % 2.2 %; Hematocrit 36.2 % (35.3-44.9); Immature Granulocytes % 0.2 % (0-4); Lymphocytes # 3.2 K/mcL (0.6-4.6); Mean Corpuscular HGB Conc 33.1 g/dL (31.6-35.5); Mean Corpuscular Hemoglobin 29.1 pg (28.0-33.3); Mean Corpuscular Volume 87.9 fL (83.0-100.0); Mean Platelet Volume 10.2 fL (9.4-12.4); Monocytes # 0.5 K/mcL (0.0-1.3); Monocytes % 8.2 %; Neutrophils # 2.5 K/mcL (1.6-8.9); Platelet Count 209 K/mcL (140-400); Red Blood Count 4.12 M/mcL (3.82-4.97); Red Cell Distribution Width 13.8 % (11.5-14.5); Segmented Neutrophils % 38.9 %; White Blood Count 6.3 K/mcL (4.3-11.1)
[2020-04-02 07:34] LABS: BUN/Creatinine Ratio 12 (6-26); Blood Urea Nitrogen 11 mg/dL (6-20); Calcium 8.8 mg/dL (8.6-10.3); Carbon Dioxide 25 mEq/L (23-29); Chloride 109 mEq/L (98-107); Glucose 88 mg/dL (70-105); Magnesium 1.9 mg/dL (1.6-2.6); Osmolality,Calculated 289 (280-300); Phosphorous 3.9 mg/dL (2.7-4.5); Potassium 3.9 mEq/L (3.5-5.1); Sodium 140 mEq/L (136-145); eGFR For African Americans > 60 (> 60); eGFR For Non-African Americans > 60 (> 60)
[2020-04-02] MEDS: Pantoprazole 40 MG VIAL IVP SCH ×2 (08:38→17:38)
[2020-04-02] MEDS: Ondansetron 4 MG/2 ML VIAL IVP PRN ×2 (08:49→17:38)
[2020-04-02] MEDS: Divalproex (12 HR) 500 MG TABLET PO SCH ×2 (11:08→21:57)
[2020-04-02] MEDS ORDERED: Lidocaine Viscous Oral Soln 15 ML SOLUTION MM PRN (11:56)
[2020-04-02] MEDS ORDERED: BUPRENORPHINE HCL 150 MCG SL SCH (15:00)
[2020-04-02] MEDS: tiZANidine 4 MG TABLET PO SCH ×2 (16:21→21:58)
[2020-04-02] MEDS: Sucralfate 1 GM TABLET PO SCH ×2 (16:22→21:58)
[2020-04-02] MEDS: QUEtiapine Fumarate 25 MG TABLET PO SCH (16:22)
[2020-04-02] MEDS ORDERED: QUEtiapine Fumarate 100 MG TABLET PO SCH (21:00)
[2020-04-02] MEDS ORDERED: QUETIAPINE FUMARATE 300 MG PO SCH (21:00)
[2020-04-02] MEDS: Pregabalin 50 MG CAPSULE PO SCH (21:58)
[2020-04-02] MEDS: QUEtiapine Fumarate 300 MG TABLET PO SCH (21:58)
[2020-04-03] MEDS: Ondansetron 4 MG/2 ML VIAL IVP PRN ×2 (03:13→13:34)
[2020-04-03] MEDS: Morphine Sulfate 2 MG/ML SYRINGE IVP PRN ×3 (03:15→12:05)
[2020-04-03] MEDS: Pantoprazole 40 MG VIAL IVP SCH (06:10)
[2020-04-03 06:58] LABS: BUN/Creatinine Ratio 12 (6-26); Blood Urea Nitrogen 10 mg/dL (6-20); Calcium 8.6 mg/dL (8.6-10.3); Carbon Dioxide 27 mEq/L (23-29); Chloride 108 mEq/L (98-107); Glucose 78 mg/dL (70-105); Magnesium 1.8 mg/dL (1.6-2.6); Osmolality,Calculated 286 (280-300); Phosphorous 4.1 mg/dL (2.7-4.5); Potassium 4.2 mEq/L (3.5-5.1); Sodium 139 mEq/L (136-145); eGFR For African Americans > 60 (> 60); eGFR For Non-African Americans > 60 (> 60)
[2020-04-03] MEDS: Divalproex (12 HR) 500 MG TABLET PO SCH ×2 (08:04→21:20)
[2020-04-03] MEDS: tiZANidine 4 MG TABLET PO SCH ×3 (08:04→21:20)
[2020-04-03] MEDS: Pregabalin 50 MG CAPSULE PO SCH ×2 (08:04→21:19)
[2020-04-03] MEDS: Sucralfate 1 GM TABLET PO SCH ×4 (08:04→21:21)
[2020-04-03] MEDS: QUEtiapine Fumarate 25 MG TABLET PO SCH ×2 (08:04→17:02)
[2020-04-03] MEDS: *HR* Promethazine 25 MG/ML VIAL IM PRN ×2 (08:16→19:32)
[2020-04-03] MEDS ORDERED: *HR* OxyCODONE Immed Rel 5 MG TABLET PO PRN (14:37)
[2020-04-03] MEDS: *HR* OxyCODONE Immed Rel 5 MG TABLET PO PRN ×2 (17:02→21:13)
[2020-04-03] MEDS: Ondansetron 4 MG/2 ML VIAL IVP SCH (17:03)
[2020-04-03] MEDS: QUEtiapine Fumarate 300 MG TABLET PO SCH (21:20)
[2020-04-04] MEDS: *HR* OxyCODONE Immed Rel 5 MG TABLET PO PRN ×5 (02:08→21:33)
[2020-04-04] MEDS: Sucralfate 1 GM TABLET PO SCH ×4 (06:16→20:34)
[2020-04-04] MEDS: tiZANidine 4 MG TABLET PO SCH ×3 (08:17→20:35)
[2020-04-04] MEDS: QUEtiapine Fumarate 25 MG TABLET PO SCH ×2 (08:17→17:07)
[2020-04-04] MEDS: Ondansetron 4 MG/2 ML VIAL IVP SCH ×3 (08:18→17:08)
[2020-04-04] MEDS: Divalproex (12 HR) 500 MG TABLET PO SCH ×2 (08:18→20:35)
[2020-04-04] MEDS: Pregabalin 50 MG CAPSULE PO SCH ×2 (08:18→20:34)
[2020-04-04] MEDS: *HR* Promethazine 25 MG/ML VIAL IM PRN ×2 (10:22→21:33)
[2020-04-04] MEDS ORDERED: Sennosides/Docusate Sodium TABLET PO ONE (13:00)
[2020-04-04] MEDS: 0.9 % Sodium Chloride 1,000 ML IVC SCH (15:10)
[2020-04-04] MEDS ORDERED: Ringers Solution, Lactated 500 ML IVC ONE (20:23)
[2020-04-04] MEDS ORDERED: Isovue-370 500 ML BOTTLE IVP ONE (20:24)
[2020-04-04] MEDS ORDERED: Ringers Solution, Lactated 1,000 ML ONE (20:29)
[2020-04-04] MEDS: QUEtiapine Fumarate 300 MG TABLET PO SCH (20:34)
[2020-04-05] MEDS: 0.9 % Sodium Chloride 1,000 ML IVC SCH (05:10)
[2020-04-05] MEDS: *HR* OxyCODONE Immed Rel 5 MG TABLET PO PRN ×3 (05:17→20:21)
[2020-04-05] MEDS: Sucralfate 1 GM TABLET PO SCH ×4 (08:00→22:36)
[2020-04-05] MEDS: Ondansetron 4 MG/2 ML VIAL IVP SCH ×3 (08:00→16:58)
[2020-04-05] MEDS: QUEtiapine Fumarate 25 MG TABLET PO SCH ×2 (08:01→16:58)
[2020-04-05] MEDS: Divalproex (12 HR) 500 MG TABLET PO SCH ×2 (08:01→20:22)
[2020-04-05] MEDS: tiZANidine 4 MG TABLET PO SCH ×3 (08:01→20:22)
[2020-04-05] MEDS: Pregabalin 50 MG CAPSULE PO SCH ×2 (08:01→20:22)
[2020-04-05] MEDS ORDERED: Acetaminophen 325 MG TABLET PO PRN (08:12)
[2020-04-05] MEDS: Sennosides 8.6 MG TABLET PO SCH ×2 (09:13→20:21)
[2020-04-05] MEDS ORDERED: *HR* OxyCODONE Immed Rel 5 MG TABLET PO PRN (11:24)
[2020-04-05] MEDS ORDERED: 0.9 % Sodium Chloride 1,000 ML IVC ONE (11:25)
[2020-04-05] MEDS: *HR* Promethazine 25 MG/ML VIAL IM PRN (13:29)
[2020-04-05] MEDS ORDERED: Bisacodyl 10 MG RECTAL SUPPOSITORY RC ONE (15:59)
[2020-04-05] MEDS: QUEtiapine Fumarate 300 MG TABLET PO SCH (20:21)
[2020-04-05] MEDS ORDERED: Bisacodyl 10 MG RECTAL SUPPOSITORY RC SCH (21:00)
[2020-04-06] MEDS: *HR* OxyCODONE Immed Rel 5 MG TABLET PO PRN ×3 (06:15→18:34)
[2020-04-06] MEDS: Sucralfate 1 GM TABLET PO SCH ×4 (07:54→20:38)
[2020-04-06] MEDS: Pregabalin 50 MG CAPSULE PO SCH ×2 (07:54→20:39)
[2020-04-06] MEDS: Sennosides 8.6 MG TABLET PO SCH ×2 (07:54→20:38)
[2020-04-06] MEDS: tiZANidine 4 MG TABLET PO SCH (07:54)
[2020-04-06] MEDS: QUEtiapine Fumarate 25 MG TABLET PO SCH ×2 (07:54→17:03)
[2020-04-06] MEDS: Divalproex (12 HR) 500 MG TABLET PO SCH ×2 (07:55→20:39)
[2020-04-06] MEDS: Ondansetron 4 MG/2 ML VIAL IVP SCH ×3 (07:55→17:04)
[2020-04-06] MEDS ORDERED: Milk and Molasses Enema 200 ML RC ONE (13:34)
[2020-04-06] MEDS: 0.9 % Sodium Chloride 1,000 ML IVC SCH (14:51)
[2020-04-06] MEDS: *HR* Promethazine 25 MG/ML VIAL IM PRN (15:59)
[2020-04-06] MEDS: QUEtiapine Fumarate 300 MG TABLET PO SCH (20:38)
[2020-04-07] MEDS: *HR* OxyCODONE Immed Rel 5 MG TABLET PO PRN ×4 (01:22→22:13)
[2020-04-07] MEDS: 0.9 % Sodium Chloride 1,000 ML IVC SCH (04:42)
[2020-04-07] MEDS: Ondansetron 4 MG/2 ML VIAL IVP SCH ×3 (08:34→17:25)
[2020-04-07] MEDS: Pregabalin 50 MG CAPSULE PO SCH ×2 (08:34→22:18)
[2020-04-07] MEDS: Sucralfate 1 GM TABLET PO SCH ×4 (08:34→22:14)
[2020-04-07] MEDS: Divalproex (12 HR) 500 MG TABLET PO SCH ×2 (08:35→22:17)
[2020-04-07] MEDS: QUEtiapine Fumarate 25 MG TABLET PO SCH ×2 (08:36→17:25)
[2020-04-07] MEDS: Sennosides 8.6 MG TABLET PO SCH (08:36)
[2020-04-07] MEDS: Psyllium 1 PACKET POWD.PACK PO SCH (12:11)
[2020-04-07] MEDS: polyethylene glycoL 3350 17 GM POWD.PACK PO SCH ×2 (12:11→22:19)
[2020-04-07] MEDS: QUEtiapine Fumarate 300 MG TABLET PO SCH (22:18)
[2020-04-08] MEDS: *HR* OxyCODONE Immed Rel 5 MG TABLET PO PRN ×4 (04:28→23:38)
[2020-04-08 05:10] LABS: Basophils % 0.5 %; Eosinophils # 0.1 K/mcL (0.0-0.6); Eosinophils % 3.2 %; Hematocrit 32.4 % (35.3-44.9); Hemoglobin 10.9 g/dL (11.5-15.4); Immature Granulocytes % 0.2 % (0-4); Lymphocytes # 2.7 K/mcL (0.6-4.6); Lymphocytes % 61.4 %; Mean Corpuscular HGB Conc 33.6 g/dL (31.6-35.5); Mean Corpuscular Hemoglobin 29.4 pg (28.0-33.3); Mean Corpuscular Volume 87.3 fL (83.0-100.0); Mean Platelet Volume 10.8 fL (9.4-12.4); Monocytes # 0.3 K/mcL (0.0-1.3); Monocytes % 7.8 %; Neutrophils # 1.2 K/mcL (1.6-8.9); Platelet Count 195 K/mcL (140-400); Red Blood Count 3.71 M/mcL (3.82-4.97); Red Cell Distribution Width 13.2 % (11.5-14.5); Segmented Neutrophils % 26.9 %; White Blood Count 4.4 K/mcL (4.3-11.1)
[2020-04-08 05:25] LABS: BUN/Creatinine Ratio 9 (6-26); Blood Urea Nitrogen 7 mg/dL (6-20); Calcium 8.7 mg/dL (8.6-10.3); Carbon Dioxide 26 mEq/L (23-29); Chloride 106 mEq/L (98-107); Glucose 70 mg/dL (70-105); Osmolality,Calculated 280 (280-300); Sodium 137 mEq/L (136-145); eGFR For African Americans > 60 (> 60); eGFR For Non-African Americans > 60 (> 60)
[2020-04-08] MEDS: QUEtiapine Fumarate 25 MG TABLET PO SCH ×2 (08:16→16:57)
[2020-04-08] MEDS: polyethylene glycoL 3350 17 GM POWD.PACK PO SCH ×2 (08:17→20:55)
[2020-04-08] MEDS: Divalproex (12 HR) 500 MG TABLET PO SCH ×2 (08:17→20:57)
[2020-04-08] MEDS: Sucralfate 1 GM TABLET PO SCH ×4 (08:17→20:56)
[2020-04-08] MEDS: Pregabalin 50 MG CAPSULE PO SCH ×2 (08:17→20:56)
[2020-04-08] MEDS: Psyllium 1 PACKET POWD.PACK PO SCH (08:17)
[2020-04-08] MEDS: Ondansetron 4 MG/2 ML VIAL IVP SCH ×3 (08:18→16:56)
[2020-04-08] MEDS: *HR* Promethazine 25 MG/ML VIAL IM PRN (15:03)
[2020-04-08] MEDS: QUEtiapine Fumarate 300 MG TABLET PO SCH (20:56)
[2020-04-09] MEDS: Psyllium 1 PACKET POWD.PACK PO SCH (07:33)
[2020-04-09] MEDS: polyethylene glycoL 3350 17 GM POWD.PACK PO SCH ×2 (07:33→20:10)
[2020-04-09] MEDS: Ondansetron 4 MG/2 ML VIAL IVP SCH ×3 (07:33→16:37)
[2020-04-09] MEDS: *HR* OxyCODONE Immed Rel 5 MG TABLET PO PRN ×3 (07:33→20:09)
[2020-04-09] MEDS: Pregabalin 50 MG CAPSULE PO SCH ×2 (07:34→20:09)
[2020-04-09] MEDS: QUEtiapine Fumarate 25 MG TABLET PO SCH ×2 (07:34→16:35)
[2020-04-09] MEDS: Sucralfate 1 GM TABLET PO SCH ×4 (07:34→20:09)
[2020-04-09] MEDS: Divalproex (12 HR) 500 MG TABLET PO SCH ×2 (07:34→20:09)
[2020-04-09] MEDS ORDERED: Milk and Molasses Enema 200 ML RC ONE (11:48)
[2020-04-09] MEDS: Hydrocortisone 1% OINT 28 GM TUBE TP SCH ×2 (16:41→20:12)
[2020-04-09] MEDS: QUEtiapine Fumarate 300 MG TABLET PO SCH (20:10)
[2020-04-09] MEDS: *HR* Promethazine 25 MG/ML VIAL IM PRN (20:10)
[2020-04-10] MEDS: *HR* OxyCODONE Immed Rel 5 MG TABLET PO PRN (05:02)
[2020-04-10] MEDS ORDERED: *HR* Enoxaparin 40 MG/0.4 ML SYRINGE SQ SCH (06:00)
[2020-04-10 07:10] VITALS: BP 97/57
[2020-04-10] MEDS: QUEtiapine Fumarate 25 MG TABLET PO SCH (08:40)
[2020-04-10] MEDS: Sucralfate 1 GM TABLET PO SCH (08:40)
[2020-04-10] MEDS: Divalproex (12 HR) 500 MG TABLET PO SCH (08:41)
[2020-04-10] MEDS: Pregabalin 50 MG CAPSULE PO SCH (08:41)
[2020-04-10] MEDS: Ondansetron 4 MG/2 ML VIAL IVP SCH (08:43)
[2020-04-10] MEDS: Psyllium 1 PACKET POWD.PACK PO SCH (08:43)
[2020-04-10] MEDS: polyethylene glycoL 3350 17 GM POWD.PACK PO SCH (08:43)
== END 2020-04-10 11:55 | disposition home or self-care (01) | DRG 392 ==
LOC: 3ANU 18:11 → EMEROOARM 18:11 → SUATTDRO 04-02 00:47 → 3ANU 04-02 01:06
PROVIDERS: ADMIT Internal Medicine; ATTEND Internal Medicine

== ENCOUNTER 2020-04-16 15:58 | Observation (INO) ==
[2020-04-16] MEDS ORDERED: Prochlorperazine 10 MG/2 ML VIAL IM ONE (16:22)
[2020-04-16] MEDS ORDERED: Acetaminophen 650 MG RECTAL SUPP RC ONE (16:25)
[2020-04-16 16:52] LABS: Basophils # 0.1 K/mcL (0.0-0.2); Basophils % 0.6 %; Eosinophils # 0.2 K/mcL (0.0-0.6); Eosinophils % 1.9 %; Hemoglobin 13.4 g/dL (11.5-15.4); Immature Granulocytes % 0.4 % (0-4); Lymphocytes # 3.9 K/mcL (0.6-4.6); Lymphocytes % 46.2 %; Mean Corpuscular HGB Conc 33.5 g/dL (31.6-35.5); Mean Corpuscular Volume 86.6 fL (83.0-100.0); Mean Platelet Volume 10.5 fL (9.4-12.4); Monocytes # 0.7 K/mcL (0.0-1.3); Monocytes % 8.8 %; Neutrophils # 3.5 K/mcL (1.6-8.9); Platelet Count 260 K/mcL (140-400); Red Blood Count 4.62 M/mcL (3.82-4.97); Segmented Neutrophils % 42.1 %; White Blood Count 8.4 K/mcL (4.3-11.1)
[2020-04-16 17:26] LABS: Alanine Aminotransferase 26 Units/L (7-52); Albumin 4.5 g/dL (3.5-5.7); Albumin/Globulin Ratio 1.7 (1.1-2.2); Alkaline Phosphatase 72 Units/L (34-104); Aspartate Amino Transferase 28 Units/L (13-39); BUN/Creatinine Ratio 9 (6-26); Bilirubin,Direct 0.1 mg/dL (0.0-0.2); Bilirubin,Indirect 0.3 mg/dL (0.0-1.0); Bilirubin,Total 0.4 mg/dL (0.3-1.0); Blood Urea Nitrogen 7 mg/dL (6-20); Calcium 9.7 mg/dL (8.6-10.3); Carbon Dioxide 26 mEq/L (23-29); Chloride 105 mEq/L (98-107); Globulin 2.7 g/dL (2.4-3.5); Glucose 82 mg/dL (70-105); Lipase 13 Units/L (11-82); Osmolality,Calculated 283 (280-300); Potassium 3.8 mEq/L (3.5-5.1); Sodium 138 mEq/L (136-145); Total Protein 7.2 g/dL (6.4-8.9); eGFR For African Americans > 60 (> 60); eGFR For Non-African Americans > 60 (> 60)
[2020-04-16] MEDS ORDERED: Haloperidol Lactate 5 MG/ML VIAL IVP ONE (17:45)
[2020-04-16] MEDS ORDERED: Naloxone 0.4 MG/ML INJ IVP PRN (17:55)
[2020-04-16] MEDS ORDERED: *HR* Dextrose 50 % in Water (Vial) 50 ML VIAL IVP PRN (17:57)
[2020-04-16] MEDS ORDERED: D5% in Water 1,000 ML IVC PRN (17:57)
[2020-04-16] MEDS ORDERED: Dextrose Gel 15 GM/37.5 ML TUBE PO PRN ×2 (17:57)
[2020-04-16] MEDS: Ringers Solution, Lactated 1,000 ML IVC SCH (18:31)
[2020-04-16] MEDS ORDERED: BUPRENORPHINE HCL 150 MCG SL SCH (21:00)
[2020-04-16] MEDS: Insulin LISPRO 300 UNITS/3 ML VIAL SUBQ SCH (22:52)
[2020-04-16] MEDS: QUEtiapine Fumarate 300 MG TABLET PO SCH (22:56)
[2020-04-16] MEDS: Sucralfate 1 GM TABLET PO SCH (22:57)
[2020-04-16] MEDS: Divalproex (12 HR) 500 MG TABLET PO SCH (22:57)
[2020-04-16] MEDS: QUEtiapine Fumarate 25 MG TABLET PO SCH (22:57)
[2020-04-16] MEDS: *HR* Heparin 5,000 UNIT/ML VIAL SQ SCH (22:58)
[2020-04-16] MEDS: Ondansetron 4 MG/2 ML VIAL IVP PRN (23:39)
[2020-04-16] MEDS: Morphine Sulfate 2 MG/ML SYRINGE IVP PRN (23:39)
[2020-04-17] MEDS: Insulin LISPRO 300 UNITS/3 ML VIAL SUBQ SCH ×4 (00:36→17:26)
[2020-04-17 01:56] LABS: Basophils % 0.3 %; Eosinophils # 0.2 K/mcL (0.0-0.6); Eosinophils % 2.1 %; Hematocrit 34.5 % (35.3-44.9); Immature Granulocytes % 0.1 % (0-4); Lymphocytes # 4.1 K/mcL (0.6-4.6); Lymphocytes % 57.3 %; Mean Corpuscular HGB Conc 33.9 g/dL (31.6-35.5); Mean Corpuscular Hemoglobin 29.3 pg (28.0-33.3); Mean Corpuscular Volume 86.5 fL (83.0-100.0); Mean Platelet Volume 10.7 fL (9.4-12.4); Monocytes # 0.5 K/mcL (0.0-1.3); Monocytes % 7.4 %; Neutrophils # 2.4 K/mcL (1.6-8.9); Platelet Count 207 K/mcL (140-400); Red Blood Count 3.99 M/mcL (3.82-4.97); Red Cell Distribution Width 12.9 % (11.5-14.5); Segmented Neutrophils % 32.8 %; White Blood Count 7.2 K/mcL (4.3-11.1)
[2020-04-17 01:58] LABS: Hemoglobin 11.7 g/dL (11.5-15.4)
[2020-04-17 02:15] LABS: BUN/Creatinine Ratio 10 (6-26); Blood Urea Nitrogen 8 mg/dL (6-20); Calcium 8.7 mg/dL (8.6-10.3); Carbon Dioxide 24 mEq/L (23-29); Chloride 107 mEq/L (98-107); Glucose 83 mg/dL (70-105); Osmolality,Calculated 281 (280-300); Phosphorous 4.1 mg/dL (2.7-4.5); Sodium 137 mEq/L (136-145); eGFR For African Americans > 60 (> 60); eGFR For Non-African Americans > 60 (> 60)
[2020-04-17] MEDS: Morphine Sulfate 2 MG/ML SYRINGE IVP PRN ×5 (04:32→21:49)
[2020-04-17] MEDS: Magic Mouthwash 10 ML UD Cup PO PRN ×2 (05:18→14:27)
[2020-04-17] MEDS: *HR* Heparin 5,000 UNIT/ML VIAL SQ SCH ×3 (05:18→21:24)
[2020-04-17] MEDS: Ondansetron 4 MG/2 ML VIAL IVP PRN ×2 (09:08→17:30)
[2020-04-17] MEDS: Divalproex (12 HR) 500 MG TABLET PO SCH ×2 (09:08→21:23)
[2020-04-17] MEDS: QUEtiapine Fumarate 25 MG TABLET PO SCH ×2 (09:08→21:24)
[2020-04-17] MEDS: Sucralfate 1 GM TABLET PO SCH ×4 (09:10→21:24)
[2020-04-17] MEDS: QUEtiapine Fumarate 300 MG TABLET PO SCH (21:24)
[2020-04-17] MEDS: Ringers Solution, Lactated 1,000 ML IVC SCH (21:24)
[2020-04-17] MEDS: Sennosides/Docusate Sodium TABLET PO SCH (21:24)
[2020-04-17] MEDS: Lidocaine Viscous Oral Soln 15 ML SOLUTION MM PRN (23:59)
[2020-04-18] MEDS: Insulin LISPRO 300 UNITS/3 ML VIAL SUBQ SCH (00:31)
[2020-04-18] MEDS: Morphine Sulfate 2 MG/ML SYRINGE IVP PRN ×4 (05:57→18:41)
[2020-04-18] MEDS: Sucralfate 1 GM TABLET PO SCH ×4 (05:57→21:04)
[2020-04-18] MEDS: *HR* Heparin 5,000 UNIT/ML VIAL SQ SCH ×3 (05:57→21:04)
[2020-04-18] MEDS: Ondansetron 4 MG/2 ML VIAL IVP PRN ×2 (06:06→18:40)
[2020-04-18] MEDS: QUEtiapine Fumarate 25 MG TABLET PO SCH ×2 (08:54→21:03)
[2020-04-18] MEDS: Divalproex (12 HR) 500 MG TABLET PO SCH ×2 (08:55→21:04)
[2020-04-18] MEDS: Sennosides/Docusate Sodium TABLET PO SCH ×2 (08:55→21:04)
[2020-04-18] MEDS ORDERED: Ondansetron 4 MG/2 ML VIAL IVP ONE (13:38)
[2020-04-18] MEDS ORDERED: tiZANidine 4 MG TABLET PO PRN (15:52)
[2020-04-18] MEDS: Lidocaine Viscous Oral Soln 15 ML SOLUTION MM PRN (16:55)
[2020-04-18] MEDS ORDERED: Cyanocobalamin (B-12) 1,000 MCG TABLET PO SCH (21:00)
[2020-04-18] MEDS: QUEtiapine Fumarate 300 MG TABLET PO SCH (21:03)
[2020-04-18] MEDS: Pregabalin 50 MG CAPSULE PO SCH (21:04)
[2020-04-19] MEDS: *HR* Heparin 5,000 UNIT/ML VIAL SQ SCH (06:30)
[2020-04-19] MEDS: Morphine Sulfate 2 MG/ML SYRINGE IVP PRN ×2 (06:30→11:35)
[2020-04-19] MEDS: Sucralfate 1 GM TABLET PO SCH ×2 (06:30→11:34)
[2020-04-19] MEDS: Sennosides/Docusate Sodium TABLET PO SCH (09:17)
[2020-04-19] MEDS: Divalproex (12 HR) 500 MG TABLET PO SCH (09:18)
[2020-04-19] MEDS: Pregabalin 50 MG CAPSULE PO SCH (09:18)
[2020-04-19] MEDS: QUEtiapine Fumarate 25 MG TABLET PO SCH (09:20)
[2020-04-19] MEDS ORDERED: Cyanocobalamin (B-12) 1,000 MCG TABLET PO SCH (09:30)
[2020-04-19] MEDS: Ondansetron 4 MG/2 ML VIAL IVP PRN (09:33)
[2020-04-19 11:08] VITALS: BP 114/65
== END 2020-04-19 14:34 | disposition home or self-care (01) ==
LOC: 3ANU 15:58 → EMEROOARM 15:58 → SUATTDRO 17:59 → 3ANU 20:00
PROVIDERS: ADMIT Internal Medicine; ATTEND Internal Medicine

== ENCOUNTER 2020-05-08 15:35 | Observation (INO) ==
[2020-05-08 16:23] LABS: Bilirubin,Urine Negative (Negative); Blood,Urine Negative (Negative); Clarity,Urine Clear (Clear); Color,Urine Yellow (Yellow); Glucose,Urine (UA) Normal (Normal); Ketones,Urine Negative (Negative); Leukocyte Esterase,Urine Negative (Negative); Nitrite,Urine Negative (Negative); PH,Urine 7.5 pH Units (5.0-8.0); Protein,Urine Trace mg/dL (Neg-Trace)
[2020-05-08] MEDS ORDERED: 0.9 % Sodium Chloride 1,000 ML IVC ONE (16:46)
[2020-05-08] MEDS ORDERED: Metoclopramide 10 MG/2 ML VIAL IVP ONE (16:46)
[2020-05-08] MEDS ORDERED: Hyoscyamine SL 0.125 MG TAB.SUBL SL ONE (16:48)
[2020-05-08 18:08] LABS: Basophils % 0.4 %; Eosinophils # 0.1 K/mcL (0.0-0.6); Eosinophils % 1.8 %; Hematocrit 34.2 % (35.3-44.9); Hemoglobin 11.5 g/dL (11.5-15.4); Immature Granulocytes % 0.2 % (0-4); Lymphocytes # 1.9 K/mcL (0.6-4.6); Lymphocytes % 35.4 %; Mean Corpuscular HGB Conc 33.6 g/dL (31.6-35.5); Mean Corpuscular Hemoglobin 29.9 pg (28.0-33.3); Mean Corpuscular Volume 88.8 fL (83.0-100.0); Mean Platelet Volume 10.4 fL (9.4-12.4); Monocytes # 0.4 K/mcL (0.0-1.3); Monocytes % 8.1 %; Neutrophils # 2.9 K/mcL (1.6-8.9); Platelet Count 239 K/mcL (140-400); Red Blood Count 3.85 M/mcL (3.82-4.97); Segmented Neutrophils % 54.1 %; White Blood Count 5.4 K/mcL (4.3-11.1)
[2020-05-08 18:16] LABS: BUN/Creatinine Ratio 17 (6-26); Blood Urea Nitrogen 11 mg/dL (6-20); Calcium 9.3 mg/dL (8.6-10.3); Carbon Dioxide 24 mEq/L (23-29); Chloride 109 mEq/L (98-107); Glucose 86 mg/dL (70-105); Magnesium 1.8 mg/dL (1.6-2.6); Osmolality,Calculated 289 (280-300); Potassium 3.5 mEq/L (3.5-5.1); Sodium 140 mEq/L (136-145); eGFR For African Americans > 60 (> 60); eGFR For Non-African Americans > 60 (> 60)
[2020-05-08] MEDS ORDERED: Ondansetron 4 MG/2 ML VIAL IVP ONE (18:21)
[2020-05-08] MEDS ORDERED: Naloxone 0.4 MG/ML INJ IVP PRN (19:26)
[2020-05-08] MEDS ORDERED: 0.9 % Sodium Chloride 1,000 ML IVC SCH (19:30)
[2020-05-08] MEDS: Pantoprazole 40 MG VIAL IVP SCH (21:18)
[2020-05-08] MEDS ORDERED: Lidocaine Viscous Oral Soln 15 ML SOLUTION MM PRN (22:50)
[2020-05-08] MEDS ORDERED: *HR* Dextrose 50 % in Water (Vial) 50 ML VIAL IVP PRN (22:54)
[2020-05-08] MEDS ORDERED: Dextrose Gel 15 GM/37.5 ML TUBE PO PRN ×2 (22:54)
[2020-05-08] MEDS ORDERED: D5% in Water 1,000 ML IVC PRN (22:54)
[2020-05-09] MEDS ORDERED: polyethylene glycoL 3350 17 GM POWD.PACK PO PRN (00:52)
[2020-05-09 01:05] LABS: Hematocrit 34.2 % (35.3-44.9); Hemoglobin 11.3 g/dL (11.5-15.4); Mean Corpuscular Hemoglobin 29.5 pg (28.0-33.3); Mean Corpuscular Volume 89.3 fL (83.0-100.0); Mean Platelet Volume 10.5 fL (9.4-12.4); Platelet Count 244 K/mcL (140-400); Red Blood Count 3.83 M/mcL (3.82-4.97)
[2020-05-09] MEDS: Divalproex (12 HR) 500 MG TABLET PO SCH ×2 (01:26→08:35)
[2020-05-09 01:27] LABS: BUN/Creatinine Ratio 15 (6-26); Blood Urea Nitrogen 9 mg/dL (6-20); Calcium 9.1 mg/dL (8.6-10.3); Carbon Dioxide 24 mEq/L (23-29); Chloride 110 mEq/L (98-107); Glucose 99 mg/dL (70-105); Osmolality,Calculated 287 (280-300); Potassium 3.5 mEq/L (3.5-5.1); Sodium 139 mEq/L (136-145); eGFR For African Americans > 60 (> 60); eGFR For Non-African Americans > 60 (> 60)
[2020-05-09] MEDS: hydrOXYzine pamoate 25 MG CAPSULE PO SCH ×2 (01:27→08:36)
[2020-05-09] MEDS: QUEtiapine Fumarate 25 MG TABLET PO SCH ×2 (01:27→08:37)
[2020-05-09] MEDS: tiZANidine 4 MG TABLET PO SCH ×3 (01:27→14:55)
[2020-05-09] MEDS: Pregabalin 50 MG CAPSULE PO SCH ×2 (01:28→08:35)
[2020-05-09] MEDS: Ondansetron 4 MG/2 ML VIAL IVP PRN ×2 (02:54→11:35)
[2020-05-09] MEDS: Insulin LISPRO 300 UNITS/3 ML VIAL SUBQ SCH ×3 (03:18→11:30)
[2020-05-09] MEDS ORDERED: Nystatin Cream 15 GM TUBE TP PRN (07:34)
[2020-05-09] MEDS: Pantoprazole 40 MG VIAL IVP SCH (08:37)
[2020-05-09] MEDS: Buprenorphine Hcl [Belbuca] 150 MCG Film PO SCH ×2 (08:38→15:03)
[2020-05-09] MEDS ORDERED: Cyanocobalamin (B-12) 1,000 MCG TABLET PO SCH (09:00)
[2020-05-09] MEDS ORDERED: Multivit/Ca/Min/Fe/FA 1 TAB TABLET PO SCH (09:00)
[2020-05-09] MEDS ORDERED: QUEtiapine Fumarate 100 MG TABLET PO SCH (09:00)
[2020-05-09] MEDS: Sucralfate 1 GM TABLET PO SCH ×2 (09:09→11:31)
[2020-05-09 11:16] VITALS: BP 99/67
== END 2020-05-09 16:50 | disposition home or self-care (01) ==
LOC: EMEROOARM 15:35 → 3ANU 15:35 → SUATTDRO 18:46 → 3ANU 19:55
PROVIDERS: ADMIT Internal Medicine; ATTEND Family Medicine

== ENCOUNTER 2020-08-31 16:45 | Observation (INO) ==
[2020-08-31] MEDS ORDERED: *HR* HYDROmorphone (PF) 1 MG/ML SYRINGE IVP ONE (18:25)
[2020-08-31] MEDS ORDERED: Ondansetron 4 MG/2 ML VIAL IVP ONE (18:25)
[2020-08-31] MEDS ORDERED: 0.9 % Sodium Chloride 1,000 ML IVC ONE (18:26)
[2020-08-31 18:35] LABS: Bilirubin,Urine Negative (Negative); Blood,Urine Negative (Negative); Clarity,Urine Clear (Clear); Color,Urine Light-Yellow (Yellow); Glucose,Urine (UA) Normal (Normal); Ketones,Urine Negative (Negative); Leukocyte Esterase,Urine Negative (Negative); Nitrite,Urine Negative (Negative); Protein,Urine Negative (Neg-Trace); Specific Gravity,Urine 1.012 (1.010-1.025); Urobilinogen,Urine Normal (Normal)
[2020-08-31 18:42] LABS: Basophils % 0.2 %; Eosinophils # 0.1 K/mcL (0.0-0.6); Eosinophils % 1.1 %; Hematocrit 39.9 % (35.3-44.9); Hemoglobin 13.5 g/dL (11.5-15.4); Immature Granulocytes % 0.1 % (0-4); Lymphocytes # 3.8 K/mcL (0.6-4.6); Lymphocytes % 47.4 %; Mean Corpuscular HGB Conc 33.8 g/dL (31.6-35.5); Mean Corpuscular Hemoglobin 29.3 pg (28.0-33.3); Mean Corpuscular Volume 86.6 fL (83.0-100.0); Mean Platelet Volume 10.4 fL (9.4-12.4); Monocytes # 0.5 K/mcL (0.0-1.3); Monocytes % 6.5 %; Neutrophils # 3.6 K/mcL (1.6-8.9); Platelet Count 257 K/mcL (140-400); Red Blood Count 4.61 M/mcL (3.82-4.97); Red Cell Distribution Width 12.4 % (11.5-14.5); Segmented Neutrophils % 44.7 %
[2020-08-31 19:07] LABS: Alanine Aminotransferase 35 Units/L (7-52); Albumin 4.5 g/dL (3.5-5.7); Albumin/Globulin Ratio 1.7 (1.1-2.2); Alkaline Phosphatase 70 Units/L (34-104); Aspartate Amino Transferase 28 Units/L (13-39); Bilirubin,Direct 0.2 mg/dL (0.0-0.2); Bilirubin,Indirect 0.4 mg/dL (0.0-1.0); Bilirubin,Total 0.6 mg/dL (0.3-1.0); Globulin 2.6 g/dL (2.4-3.5); Lipase 23 Units/L (11-82); Total Protein 7.1 g/dL (6.4-8.9)
[2020-08-31 19:08] LABS: Troponin I < 0.03 ng/mL (< 0.04)
[2020-08-31 20:29] LABS: BUN/Creatinine Ratio 15 (6-26); Blood Urea Nitrogen 15 mg/dL (6-20); Calcium 9.8 mg/dL (8.6-10.3); Carbon Dioxide 25 mEq/L (23-29); Chloride 103 mEq/L (98-107); Glucose 82 mg/dL (70-105); Osmolality,Calculated 286 (280-300); Potassium 4.2 mEq/L (3.5-5.1); Sodium 138 mEq/L (136-145); eGFR For African Americans > 60 (> 60); eGFR For Non-African Americans > 60 (> 60)
[2020-08-31] MEDS ORDERED: Isovue-370 500 ML BOTTLE IVP ONE (21:00)
[2020-08-31] MEDS ORDERED: Ketorolac 15 MG/ML VIAL IVP ONE (22:41)
[2020-08-31] MEDS ORDERED: 0.9 % Sodium Chloride 1,000 ML IV ONE (23:51)
[2020-09-01] MEDS ORDERED: *HR* LORazepam 2 MG/ML VIAL IVP ONE ×4 (00:17→11:44)
[2020-09-01] MEDS ORDERED: Ondansetron 4 MG/2 ML VIAL IVP ONE (00:17)
[2020-09-01] MEDS ORDERED: Ketorolac 30 MG/ML VIAL IVP PRN (01:33)
[2020-09-01] MEDS ORDERED: Naloxone 0.4 MG/ML INJ IVP PRN (01:33)
[2020-09-01] MEDS: Chloraseptic Spray 177 ML BOTTLE MM PRN ×3 (03:18→20:44)
[2020-09-01 03:29] LABS: Hematocrit 35.4 % (35.3-44.9); Hemoglobin 12.4 g/dL (11.5-15.4); Mean Corpuscular Hemoglobin 30.2 pg (28.0-33.3); Mean Corpuscular Volume 86.1 fL (83.0-100.0); Mean Platelet Volume 10.4 fL (9.4-12.4); Platelet Count 215 K/mcL (140-400); Red Blood Count 4.11 M/mcL (3.82-4.97); Red Cell Distribution Width 12.4 % (11.5-14.5); White Blood Count 6.1 K/mcL (4.3-11.1)
[2020-09-01 03:51] LABS: BUN/Creatinine Ratio 13 (6-26); Blood Urea Nitrogen 13 mg/dL (6-20); Calcium 8.9 mg/dL (8.6-10.3); Carbon Dioxide 23 mEq/L (23-29); Chloride 107 mEq/L (98-107); Glucose 83 mg/dL (70-105); Osmolality,Calculated 287 (280-300); Potassium 3.8 mEq/L (3.5-5.1); Sodium 139 mEq/L (136-145); eGFR For African Americans > 60 (> 60); eGFR For Non-African Americans 59 (> 60)
[2020-09-01] MEDS: *HR* Heparin 5,000 UNIT/ML VIAL SQ SCH ×3 (07:05→20:34)
[2020-09-01] MEDS ORDERED: *HR* HYDROcodone/Acet 5/325 mg TABLET PO PRN (08:55)
[2020-09-01] MEDS: Ondansetron 4 MG/2 ML VIAL IVP PRN ×2 (09:15→22:02)
[2020-09-01] MEDS ORDERED: BUPRENORPHINE HCL 150 MCG PO SCH (11:45)
[2020-09-01] MEDS: Divalproex (12 HR) 500 MG TABLET PO SCH ×2 (11:52→20:34)
[2020-09-01] MEDS ORDERED: QUETIAPINE FUMARATE 300 MG PO ONE (20:54)
[2020-09-01] MEDS ORDERED: QUEtiapine Fumarate 100 MG TABLET PO ONE ×2 (21:00→21:38)
[2020-09-02] MEDS: *HR* Heparin 5,000 UNIT/ML VIAL SQ SCH ×2 (05:13→13:37)
[2020-09-02 08:44] LABS: Basophils % 0.5 %; Eosinophils # 0.1 K/mcL (0.0-0.6); Eosinophils % 1.7 %; Hematocrit 39.6 % (35.3-44.9); Hemoglobin 13.1 g/dL (11.5-15.4); Immature Granulocytes % 0.2 % (0-4); Lymphocytes # 3.3 K/mcL (0.6-4.6); Lymphocytes % 50.7 %; Mean Corpuscular HGB Conc 33.1 g/dL (31.6-35.5); Mean Corpuscular Hemoglobin 29.1 pg (28.0-33.3); Mean Platelet Volume 10.4 fL (9.4-12.4); Monocytes # 0.5 K/mcL (0.0-1.3); Neutrophils # 2.6 K/mcL (1.6-8.9); Platelet Count 202 K/mcL (140-400); Red Cell Distribution Width 12.5 % (11.5-14.5); Segmented Neutrophils % 39.9 %; White Blood Count 6.4 K/mcL (4.3-11.1)
[2020-09-02] MEDS: Divalproex (12 HR) 500 MG TABLET PO SCH (08:45)
[2020-09-02 09:05] LABS: BUN/Creatinine Ratio 8 (6-26); Blood Urea Nitrogen 7 mg/dL (6-20); Calcium 9.4 mg/dL (8.6-10.3); Carbon Dioxide 28 mEq/L (23-29); Chloride 108 mEq/L (98-107); Glucose 87 mg/dL (70-105); Osmolality,Calculated 287 (280-300); Potassium 4.6 mEq/L (3.5-5.1); Sodium 140 mEq/L (136-145); eGFR For African Americans > 60 (> 60); eGFR For Non-African Americans > 60 (> 60)
[2020-09-02 16:19] VITALS: BP 108/70
[2020-09-02] MEDS ORDERED: Pregabalin 50 MG CAPSULE PO SCH (21:00)
[2020-09-02] MEDS ORDERED: QUEtiapine Fumarate 25 MG TABLET PO SCH (21:00)
== END 2020-09-02 18:52 | disposition home or self-care (01) ==
LOC: EMEROOARM 16:45 → 3ANU 16:45 → SUATTDRO 09-01 01:03 → 3ANU 09-01 01:44
PROVIDERS: ADMIT Internal Medicine; ATTEND Student in an Organized Health Care Education/Training Program